=== PATIENT | male | born 1940 | race Caucasian/White ===

== ENCOUNTER 2021-02-28 17:51 | Observation (INO) ==
[2021-02-28] MEDS ORDERED: Acetaminophen 325 MG TABLET PO PRN (20:36)
[2021-02-28] MEDS ORDERED: Melatonin 3 MG TABLET PO PRN (20:36)
[2021-02-28] MEDS ORDERED: Naloxone 0.4 MG/ML INJ IVP PRN (20:36)
[2021-02-28] MEDS ORDERED: Ondansetron 4 MG/2 ML VIAL IVP PRN (20:36)
[2021-02-28] MEDS ORDERED: *HR* Heparin 5,000 UNIT/ML VIAL IVP ONE (22:55)
[2021-02-28] MEDS ORDERED: *HR* Heparin 5,000 UNIT/ML VIAL IVP PRN ×2 (22:55)
[2021-02-28] MEDS ORDERED: Nitroglycerin 0.4 MG TAB.SUBL SL PRN (22:55)
[2021-02-28] MEDS ORDERED: Heparin 25,000UNIT/250ML 1/2NS 25,000 UNIT/250 ML IV.SOLN IVC SCH (23:00)
[2021-03-01] MEDS ORDERED: Perflutren Lipid Microsphere 1.3 ML in 0.9 % Sodium Chloride 8.7 ML IVP PRN (00:24)
[2021-03-01] MEDS ORDERED: Loratadine 10 MG TABLET PO SCH (00:30)
[2021-03-01] MEDS: Morphine Sulfate 2 MG/ML SYRINGE IVP PRN ×2 (00:46→05:51)
[2021-03-01] MEDS: Gabapentin 300 MG CAPSULE PO SCH ×2 (00:46→08:36)
[2021-03-01] MEDS: Isosorbide MONOnitrate (24 HR) 60 MG TAB.ER.24H PO SCH ×2 (00:47→08:36)
[2021-03-01 06:01] LABS: Basophils % 0.3 %; Eosinophils % 0.1 %; Hematocrit 33.9 % (37.5-50.1); Immature Granulocytes % 0.3 % (0-4); Lymphocytes # 2.1 K/mcL (0.6-4.6); Lymphocytes % 13.7 %; Mean Corpuscular HGB Conc 32.4 g/dL (31.6-35.5); Mean Corpuscular Hemoglobin 31.2 pg (28.0-33.3); Mean Platelet Volume 12.2 fL (9.4-12.4); Monocytes # 1.8 K/mcL (0.0-1.3); Monocytes % 11.9 %; Neutrophils # 11.1 K/mcL (1.6-8.9); Platelet Count 255 K/mcL (140-400); Red Blood Count 3.53 M/mcL (4.19-5.50); Red Cell Distribution Width 14.4 % (11.5-14.5); Segmented Neutrophils % 73.7 %
[2021-03-01 06:09] LABS: INR 1.4
[2021-03-01 06:28] LABS: Albumin 3.4 g/dL (3.5-5.7); Albumin/Globulin Ratio 0.9 (1.1-2.2); Bilirubin,Total 0.7 mg/dL (0.3-1.0); Globulin 3.6 g/dL (2.4-3.5); Magnesium 2.4 mg/dL (1.6-2.6); Phosphorous 3.4 mg/dL (2.7-4.5); Potassium 4.4 mEq/L (3.5-5.1); Troponin I 0.05 ng/mL (< 0.04)
[2021-03-01] MEDS ORDERED: Cholecalciferol (D-3) 1,000 UNIT (25MCG) TABLET PO SCH (09:00)
[2021-03-01] MEDS ORDERED: Aspirin Enteric Coated 81 MG Tablet PO SCH (09:00)
[2021-03-01] MEDS ORDERED: *HR* OxyCODONE Immed Rel 5 MG TABLET PO ONE (13:23)
[2021-03-01 15:16] LABS: Hematocrit 30.9 % (37.5-50.1); Hemoglobin 9.9 g/dL (12.9-16.9); Mean Corpuscular Hemoglobin 30.9 pg (28.0-33.3); Mean Corpuscular Volume 96.6 fL (83.0-100.0); Platelet Count 221 K/mcL (140-400); Red Cell Distribution Width 14.6 % (11.5-14.5); White Blood Count 16.1 K/mcL (4.3-11.1)
[2021-03-01] MEDS ORDERED: *HR* HYDROcodone/Acet 5/325 mg TABLET PO PRN (19:10)
[2021-03-01 20:03] VITALS: BP 120/60
[2021-03-01 20:13] LABS: VBG Ionized Calcium 1.06 mmol/L (1.15-1.35)
[2021-03-01 20:17] LABS: Heparin anti-factor XA UFH 0.36 IU/mL (0.30-0.70); INR 1.4; Prothrombin Time 15.8 Seconds (9.4-12.1)
[2021-03-01 20:19] LABS: Activated Partial Thrombo Time 53.6 Seconds (26.0-36.0)
[2021-03-01 20:29] LABS: Albumin 3.3 g/dL (3.5-5.7); Albumin/Globulin Ratio 0.9 (1.1-2.2); Bilirubin,Total 0.5 mg/dL (0.3-1.0); Calcium 8.6 mg/dL (8.6-10.3); Globulin 3.5 g/dL (2.4-3.5); Magnesium 2.3 mg/dL (1.6-2.6); Phosphorous 3.1 mg/dL (2.7-4.5); Potassium 4.4 mEq/L (3.5-5.1); Total Protein 6.8 g/dL (6.4-8.9)
== END 2021-03-01 20:36 | disposition short-term general hospital (02) ==
LOC: 3BNU → SUATTDRO 19:40 → ICNU 03-01 19:15
PROVIDERS: ADMIT Internal Medicine; ATTEND Registered Nurse

== ENCOUNTER 2022-03-04 16:54 | Inpatient (IN) ==
[2022-03-04 17:40] LABS: Basophils # 0.1 K/mcL (0.0-0.2); Basophils % 0.6 %; Eosinophils # 0.7 K/mcL (0.0-0.6); Eosinophils % 6.4 %; Hematocrit 29.1 % (37.5-50.1); Hemoglobin 9.4 g/dL (12.9-16.9); Immature Granulocytes % 0.3 % (0-4); Lymphocytes # 2.3 K/mcL (0.6-4.6); Lymphocytes % 21.5 %; Mean Corpuscular HGB Conc 32.3 g/dL (31.6-35.5); Mean Corpuscular Hemoglobin 31.1 pg (28.0-33.3); Mean Corpuscular Volume 96.4 fL (83.0-100.0); Mean Platelet Volume 12.3 fL (9.4-12.4); Monocytes # 0.7 K/mcL (0.0-1.3); Monocytes % 6.9 %; Neutrophils # 6.9 K/mcL (1.6-8.9); Platelet Count 269 K/mcL (140-400); Red Blood Count 3.02 M/mcL (4.19-5.50); Red Cell Distribution Width 15.7 % (11.5-14.5); Segmented Neutrophils % 64.3 %; White Blood Count 10.8 K/mcL (4.3-11.1)
[2022-03-04 17:49] LABS: Bilirubin,Urine Negative (Negative); Blood,Urine Small (Negative); Clarity,Urine Clear (Clear); Color,Urine Colorless (Yellow); Glucose,Urine (UA) 70 mg/dL (Normal); Ketones,Urine Negative (Negative); Leukocyte Esterase,Urine Negative (Negative); Mucus,Urine Few per lpf (None-Few); Nitrite,Urine Negative (Negative); PH,Urine 6.5 pH Units (5.0-8.0); Protein,Urine >=300 mg/dL (Neg-Trace); RBC,Urine 0-3 per hpf (0-3); Specific Gravity,Urine 1.008 (1.010-1.025); Urobilinogen,Urine Normal (Normal); WBC,Urine 0-3 per hpf (0-3)
[2022-03-04 18:04] LABS: Albumin 3.6 g/dL (3.5-5.7); Albumin/Globulin Ratio 0.9 (1.1-2.2); Bilirubin,Total 0.3 mg/dL (0.3-1.0); Calcium 8.8 mg/dL (8.6-10.3); Magnesium 2.5 mg/dL (1.6-2.6); Potassium 4.7 mEq/L (3.5-5.1); Total Protein 7.6 g/dL (6.4-8.9); Troponin I 0.04 ng/mL (< 0.04)
[2022-03-04 18:36] LABS: Adenovirus Not Detected (Not Detect); Bordetella Pertussis Not Detected (Not Detect); Chlamydophila pneumoniae Not Detected (Not Detect); Coronavirus 229E Not Detected (Not Detect); Coronavirus HKU1 Not Detected (Not Detect); Coronavirus NL63 Not Detected (Not Detect); Coronavirus OC43 Not Detected (Not Detect); Human Metapneumovirus Not Detected (Not Detect); Human Rhinovirus/Enterovirus Not Detected (Not Detect); Influenza A Subtype 2009 H1 Not Detected (Not Detect); Influenza B Not Detected (Not Detect); Mycoplasma pneumoniae Not Detected (Not Detect); Parainfluenza Virus 1 Not Detected (Not Detect); Parainfluenza Virus 2 Not Detected (Not Detect); Parainfluenza Virus 3 Not Detected (Not Detect); Parainfluenza Virus 4 Not Detected (Not Detect); Respiratory Syncytial Virus Not Detected (Not Detect); SARS-CoV-2 Not Detected (Not Detect)
[2022-03-04] MEDS ORDERED: Furosemide 40 MG/4 ML VIAL IVP ONE (19:47)
[2022-03-04] MEDS ORDERED: tiZANidine 4 MG TABLET PO PRN (21:34)
[2022-03-04] MEDS ORDERED: Acetaminophen 325 MG TABLET PO PRN (21:38)
[2022-03-04] MEDS ORDERED: Naloxone 0.4 MG/ML INJ IVP PRN (21:38)
[2022-03-04] MEDS ORDERED: Ondansetron 4 MG/2 ML VIAL IVP PRN (21:38)
[2022-03-04] MEDS ORDERED: Melatonin 3 MG TABLET PO PRN (21:38)
[2022-03-04] MEDS: Gabapentin 300 MG CAPSULE PO SCH (22:00)
[2022-03-04] MEDS ORDERED: Perflutren Lipid Microsphere 1.3 ML in 0.9 % Sodium Chloride 8.7 ML IVP PRN (22:21)
[2022-03-05] MEDS: *HR* Heparin 5,000 UNIT/ML VIAL SQ SCH ×4 (00:09→20:55)
[2022-03-05 00:10] LABS: Protein/Creatinine Ratio,Urine 7.05 mg/mg (0.00-0.20); Sodium, Urine 84.2 mEq/L
[2022-03-05 05:44] LABS: Hematocrit 26.7 % (37.5-50.1); Hemoglobin 8.7 g/dL (12.9-16.9); Mean Corpuscular Hemoglobin 31.8 pg (28.0-33.3); Mean Corpuscular Volume 97.4 fL (83.0-100.0); Red Blood Count 2.74 M/mcL (4.19-5.50); White Blood Count 11.1 K/mcL (4.3-11.1)
[2022-03-05 05:45] LABS: Mean Corpuscular HGB Conc 32.6 g/dL (31.6-35.5); Mean Platelet Volume 12.8 fL (9.4-12.4); Platelet Count 254 K/mcL (140-400); Red Cell Distribution Width 15.9 % (11.5-14.5)
[2022-03-05 06:01] LABS: INR 1.2; Prothrombin Time 12.9 Seconds (9.4-12.1)
[2022-03-05 06:03] LABS: Activated Partial Thrombo Time 32.1 Seconds (26.0-36.0)
[2022-03-05 06:10] LABS: Troponin I 0.05 ng/mL (< 0.04)
[2022-03-05 06:28] LABS: Calcium 8.6 mg/dL (8.6-10.3); Potassium 4.1 mEq/L (3.5-5.1)
[2022-03-05 07:13] LABS: Thyroid Stimulating Hormone 1.95 mcIU/mL (0.340-5.600)
[2022-03-05] MEDS ORDERED: Iron Sucrose Complex 400 MG in 0.9 % Sodium Chloride 250 ML IVPB ONE (07:22)
[2022-03-05 07:24] LABS: Folate 14.3 ng/mL (3.0-16.0)
[2022-03-05] MEDS: Renal Vitamin 1 CAP CAPSULE PO SCH (09:16)
[2022-03-05] MEDS: Aspirin Enteric Coated 81 MG Tablet PO SCH (09:17)
[2022-03-05] MEDS: Gabapentin 100 MG CAPSULE PO SCH (09:17)
[2022-03-05] MEDS: Cholecalciferol (D-3) 1,000 UNIT (25MCG) TABLET PO SCH (09:17)
[2022-03-05] MEDS: allopurinoL 100 MG TABLET PO SCH (09:17)
[2022-03-05] MEDS: amLODIPine 5 MG TABLET PO SCH (09:17)
[2022-03-05] MEDS: Isosorbide MONOnitrate (24 HR) 60 MG TAB.ER.24H PO SCH (09:17)
[2022-03-05] MEDS: Magnesium Oxide 400 MG TABLET PO SCH (09:17)
[2022-03-05] MEDS: Tolvaptan 15 MG TABLET PO SCH ×2 (09:55→17:33)
[2022-03-05] MEDS ORDERED: Tolvaptan 15 MG TABLET PO SCH (18:00)
[2022-03-05] MEDS: Gabapentin 300 MG CAPSULE PO SCH (20:55)
[2022-03-06] MEDS: *HR* Heparin 5,000 UNIT/ML VIAL SQ SCH ×3 (05:32→21:04)
[2022-03-06 05:46] LABS: Hematocrit 27.7 % (37.5-50.1); Mean Corpuscular HGB Conc 32.5 g/dL (31.6-35.5); Mean Corpuscular Hemoglobin 31.6 pg (28.0-33.3); Mean Corpuscular Volume 97.2 fL (83.0-100.0); Mean Platelet Volume 12.6 fL (9.4-12.4); Platelet Count 266 K/mcL (140-400); Red Blood Count 2.85 M/mcL (4.19-5.50); Red Cell Distribution Width 15.6 % (11.5-14.5)
[2022-03-06 06:06] LABS: Magnesium 2.4 mg/dL (1.6-2.6); Phosphorous 5.2 mg/dL (2.7-4.5); Potassium 4.6 mEq/L (3.5-5.1)
[2022-03-06] MEDS: amLODIPine 5 MG TABLET PO SCH (08:11)
[2022-03-06] MEDS: allopurinoL 100 MG TABLET PO SCH (08:11)
[2022-03-06] MEDS: Renal Vitamin 1 CAP CAPSULE PO SCH (08:11)
[2022-03-06] MEDS: Magnesium Oxide 400 MG TABLET PO SCH (08:11)
[2022-03-06] MEDS: Gabapentin 100 MG CAPSULE PO SCH (08:11)
[2022-03-06] MEDS: Isosorbide MONOnitrate (24 HR) 60 MG TAB.ER.24H PO SCH (08:11)
[2022-03-06] MEDS: Aspirin Enteric Coated 81 MG Tablet PO SCH (08:11)
[2022-03-06] MEDS: Cholecalciferol (D-3) 1,000 UNIT (25MCG) TABLET PO SCH (08:11)
[2022-03-06] MEDS: Tolvaptan 15 MG TABLET PO SCH ×2 (09:24→15:16)
[2022-03-06] MEDS ORDERED: Iron Sucrose Complex 400 MG in 0.9 % Sodium Chloride 250 ML IVPB ONE (14:42)
[2022-03-06] MEDS: Gabapentin 300 MG CAPSULE PO SCH (21:04)
[2022-03-07 03:29] LABS: Hematocrit 25.6 % (37.5-50.1); Hemoglobin 8.4 g/dL (12.9-16.9); Mean Corpuscular HGB Conc 32.8 g/dL (31.6-35.5); Mean Corpuscular Hemoglobin 31.2 pg (28.0-33.3); Mean Corpuscular Volume 95.2 fL (83.0-100.0); Mean Platelet Volume 12.7 fL (9.4-12.4); Platelet Count 259 K/mcL (140-400); Red Blood Count 2.69 M/mcL (4.19-5.50); Red Cell Distribution Width 15.5 % (11.5-14.5); White Blood Count 10.4 K/mcL (4.3-11.1)
[2022-03-07 03:46] LABS: Calcium 8.8 mg/dL (8.6-10.3); Magnesium 2.3 mg/dL (1.6-2.6); Phosphorous 5.2 mg/dL (2.7-4.5); Potassium 4.5 mEq/L (3.5-5.1)
[2022-03-07] MEDS: *HR* Heparin 5,000 UNIT/ML VIAL SQ SCH ×3 (06:03→21:12)
[2022-03-07] MEDS: Isosorbide MONOnitrate (24 HR) 60 MG TAB.ER.24H PO SCH (09:39)
[2022-03-07] MEDS: Aspirin Enteric Coated 81 MG Tablet PO SCH (09:39)
[2022-03-07] MEDS: allopurinoL 100 MG TABLET PO SCH (09:39)
[2022-03-07] MEDS: amLODIPine 5 MG TABLET PO SCH (09:39)
[2022-03-07] MEDS: Magnesium Oxide 400 MG TABLET PO SCH (09:39)
[2022-03-07] MEDS: Cholecalciferol (D-3) 1,000 UNIT (25MCG) TABLET PO SCH (09:39)
[2022-03-07] MEDS: Gabapentin 100 MG CAPSULE PO SCH (09:39)
[2022-03-07] MEDS: Renal Vitamin 1 CAP CAPSULE PO SCH (09:39)
[2022-03-07] MEDS: Tolvaptan 15 MG TABLET PO SCH ×2 (10:44→18:01)
[2022-03-07] MEDS: Gabapentin 300 MG CAPSULE PO SCH (21:11)
[2022-03-08 01:09] LABS: Hematocrit 29.4 % (37.5-50.1); Hemoglobin 9.5 g/dL (12.9-16.9); Mean Corpuscular HGB Conc 32.3 g/dL (31.6-35.5); Mean Corpuscular Hemoglobin 31.3 pg (28.0-33.3); Mean Corpuscular Volume 96.7 fL (83.0-100.0); Mean Platelet Volume 12.8 fL (9.4-12.4); Platelet Count 247 K/mcL (140-400); Red Blood Count 3.04 M/mcL (4.19-5.50); Red Cell Distribution Width 15.5 % (11.5-14.5); White Blood Count 11.3 K/mcL (4.3-11.1)
[2022-03-08 01:40] LABS: Calcium 9.1 mg/dL (8.6-10.3); Magnesium 2.4 mg/dL (1.6-2.6); Phosphorous 5.4 mg/dL (2.7-4.5); Potassium 5.1 mEq/L (3.5-5.1)
[2022-03-08] MEDS: *HR* Heparin 5,000 UNIT/ML VIAL SQ SCH ×3 (05:12→20:48)
[2022-03-08] MEDS: Magnesium Oxide 400 MG TABLET PO SCH (09:53)
[2022-03-08] MEDS: amLODIPine 5 MG TABLET PO SCH (09:54)
[2022-03-08] MEDS: Renal Vitamin 1 CAP CAPSULE PO SCH (09:54)
[2022-03-08] MEDS: Isosorbide MONOnitrate (24 HR) 60 MG TAB.ER.24H PO SCH (09:54)
[2022-03-08] MEDS: allopurinoL 100 MG TABLET PO SCH (09:54)
[2022-03-08] MEDS: Gabapentin 100 MG CAPSULE PO SCH (09:54)
[2022-03-08] MEDS: Tolvaptan 15 MG TABLET PO SCH (09:54)
[2022-03-08] MEDS: Cholecalciferol (D-3) 1,000 UNIT (25MCG) TABLET PO SCH (09:54)
[2022-03-08] MEDS: Aspirin Enteric Coated 81 MG Tablet PO SCH (09:54)
[2022-03-08] MEDS ORDERED: Lidocaine/EPI 1:100k 1% 50 ML VIAL ONE (13:00)
[2022-03-08] MEDS ORDERED: Heparin 1,000 UNITS/500 mL 500 ML ONE (13:00)
[2022-03-08] MEDS ORDERED: *HR* Heparin 5,000 UNIT/ML VIAL ONE (13:05)
[2022-03-08] MEDS ORDERED: *HR* FentaNYL (PF) 100 MCG/2 ML VIAL ONE (13:05)
[2022-03-08] MEDS ORDERED: 0.9 % Sodium Chloride 500 ML ONE (13:05)
[2022-03-08] MEDS ORDERED: ceFAZolin 2,000 MG in Water for inj. (sterile) 20 ML IVP ONE (13:18)
[2022-03-08] MEDS ORDERED: *HR* FentaNYL (PF) 100 MCG/2 ML VIAL IVP ONE (13:18)
[2022-03-08] MEDS ORDERED: 0.9 % Sodium Chloride 250 ML IVC PRN (15:24)
[2022-03-08] MEDS ORDERED: 0.9 % Sodium Chloride 1,000 ML PRIME SCH (15:30)
[2022-03-08 19:37] LABS: Hepatitis B Surface Antibody < 3.10 mIU/mL
[2022-03-08 19:48] LABS: Hepatitis B Surface Antigen Nonreactive (Nonreactive)
[2022-03-08] MEDS: Gabapentin 300 MG CAPSULE PO SCH (20:47)
[2022-03-08] MEDS: TOLVAPTAN 15 MG PO SCH (20:47)
[2022-03-09 02:03] LABS: Hematocrit 27.5 % (37.5-50.1); Mean Corpuscular HGB Conc 32.7 g/dL (31.6-35.5); Mean Corpuscular Hemoglobin 30.8 pg (28.0-33.3); Mean Corpuscular Volume 94.2 fL (83.0-100.0); Mean Platelet Volume 12.6 fL (9.4-12.4); Platelet Count 267 K/mcL (140-400); Red Blood Count 2.92 M/mcL (4.19-5.50); Red Cell Distribution Width 15.3 % (11.5-14.5); White Blood Count 8.9 K/mcL (4.3-11.1)
[2022-03-09 02:28] LABS: Albumin 3.1 g/dL (3.5-5.7); Albumin/Globulin Ratio 0.9 (1.1-2.2); Bilirubin,Total 0.3 mg/dL (0.3-1.0); Calcium 8.8 mg/dL (8.6-10.3); Globulin 3.5 g/dL (2.4-3.5); Magnesium 2.1 mg/dL (1.6-2.6); Potassium 4.1 mEq/L (3.5-5.1); Total Protein 6.6 g/dL (6.4-8.9)
[2022-03-09] MEDS: *HR* Heparin 5,000 UNIT/ML VIAL SQ SCH ×3 (05:54→20:18)
[2022-03-09] MEDS ORDERED: 0.9 % Sodium Chloride 250 ML IVC PRN (07:46)
[2022-03-09] MEDS ORDERED: *HR* Heparin 10,000 UNIT/10 ML VIAL IV PRN ×2 (07:46)
[2022-03-09] MEDS: Aspirin Enteric Coated 81 MG Tablet PO SCH (08:13)
[2022-03-09] MEDS: allopurinoL 100 MG TABLET PO SCH (08:13)
[2022-03-09] MEDS: Magnesium Oxide 400 MG TABLET PO SCH (08:13)
[2022-03-09] MEDS: Cholecalciferol (D-3) 1,000 UNIT (25MCG) TABLET PO SCH (08:13)
[2022-03-09] MEDS: Gabapentin 100 MG CAPSULE PO SCH (08:14)
[2022-03-09] MEDS: Renal Vitamin 1 CAP CAPSULE PO SCH (08:14)
[2022-03-09] MEDS: TOLVAPTAN 45 MG PO SCH (08:25)
[2022-03-09] MEDS: Isosorbide MONOnitrate (24 HR) 60 MG TAB.ER.24H PO SCH (09:03)
[2022-03-09] MEDS: amLODIPine 5 MG TABLET PO SCH (09:03)
[2022-03-09] MEDS: TOLVAPTAN 15 MG PO SCH (16:25)
[2022-03-09] MEDS ORDERED: Tolvaptan 15 MG TABLET PO SCH (18:00)
[2022-03-09] MEDS: Gabapentin 300 MG CAPSULE PO SCH (20:18)
[2022-03-10 05:59] LABS: Basophils # 0.1 K/mcL (0.0-0.2); Basophils % 0.6 %; Eosinophils # 0.5 K/mcL (0.0-0.6); Hematocrit 29.9 % (37.5-50.1); Hematocrit 31.2 % (37.5-50.1); Hemoglobin 10.1 g/dL (12.9-16.9); Immature Granulocytes % 0.3 % (0-4); Lymphocytes # 2.9 K/mcL (0.6-4.6); Lymphocytes % 26.5 %; Mean Corpuscular HGB Conc 32.4 g/dL (31.6-35.5); Mean Corpuscular HGB Conc 33.4 g/dL (31.6-35.5); Mean Corpuscular Hemoglobin 31.9 pg (28.0-33.3); Mean Corpuscular Volume 95.5 fL (83.0-100.0); Mean Corpuscular Volume 95.7 fL (83.0-100.0); Mean Platelet Volume 12.9 fL (9.4-12.4); Monocytes # 1.3 K/mcL (0.0-1.3); Monocytes % 12.4 %; Platelet Count 275 K/mcL (140-400); Platelet Count 283 K/mcL (140-400); Red Blood Count 3.13 M/mcL (4.19-5.50); Red Blood Count 3.26 M/mcL (4.19-5.50); Red Cell Distribution Width 15.3 % (11.5-14.5); Red Cell Distribution Width 15.5 % (11.5-14.5); Segmented Neutrophils % 55.2 %; White Blood Count 10.8 K/mcL (4.3-11.1)
[2022-03-10] MEDS: *HR* Heparin 5,000 UNIT/ML VIAL SQ SCH ×3 (05:59→21:00)
[2022-03-10 06:19] LABS: Albumin 3.2 g/dL (3.5-5.7); Albumin/Globulin Ratio 0.9 (1.1-2.2); Bilirubin,Total 0.4 mg/dL (0.3-1.0); Calcium 8.8 mg/dL (8.6-10.3); Globulin 3.7 g/dL (2.4-3.5); Potassium 3.9 mEq/L (3.5-5.1); Total Protein 6.9 g/dL (6.4-8.9)
[2022-03-10 06:20] LABS: Calcium 8.9 mg/dL (8.6-10.3); Potassium 3.7 mEq/L (3.5-5.1)
[2022-03-10] MEDS: Cholecalciferol (D-3) 1,000 UNIT (25MCG) TABLET PO SCH (07:45)
[2022-03-10] MEDS: Magnesium Oxide 400 MG TABLET PO SCH (07:45)
[2022-03-10] MEDS: Renal Vitamin 1 CAP CAPSULE PO SCH (07:45)
[2022-03-10] MEDS: allopurinoL 100 MG TABLET PO SCH (07:45)
[2022-03-10] MEDS: Gabapentin 100 MG CAPSULE PO SCH (07:45)
[2022-03-10] MEDS: Aspirin Enteric Coated 81 MG Tablet PO SCH (07:45)
[2022-03-10] MEDS: TOLVAPTAN 45 MG PO SCH (07:48)
[2022-03-10] MEDS ORDERED: 0.9 % Sodium Chloride 250 ML IVC PRN (08:30)
[2022-03-10] MEDS ORDERED: *HR* Heparin 10,000 UNIT/10 ML VIAL IV PRN ×2 (08:30)
[2022-03-10] MEDS ORDERED: Tolvaptan 15 MG TABLET PO SCH (09:00)
[2022-03-10 12:19] LABS: Hepatitis B Surface Antigen Nonreactive (Nonreactive)
[2022-03-10 12:48] LABS: Hepatitis B Core IgM Nonreactive (Nonreactive)
[2022-03-10] MEDS: Isosorbide MONOnitrate (24 HR) 60 MG TAB.ER.24H PO SCH (13:52)
[2022-03-10] MEDS: amLODIPine 5 MG TABLET PO SCH (13:52)
[2022-03-10] MEDS: Gabapentin 300 MG CAPSULE PO SCH (21:00)
[2022-03-11 05:03] LABS: Hematocrit 29.3 % (37.5-50.1); Hemoglobin 9.7 g/dL (12.9-16.9); Mean Corpuscular HGB Conc 33.1 g/dL (31.6-35.5); Mean Corpuscular Hemoglobin 31.6 pg (28.0-33.3); Mean Corpuscular Volume 95.4 fL (83.0-100.0); Mean Platelet Volume 12.4 fL (9.4-12.4); Platelet Count 269 K/mcL (140-400); Red Blood Count 3.07 M/mcL (4.19-5.50); Red Cell Distribution Width 15.6 % (11.5-14.5); White Blood Count 9.7 K/mcL (4.3-11.1)
[2022-03-11 05:27] LABS: Calcium 8.8 mg/dL (8.6-10.3); Potassium 3.8 mEq/L (3.5-5.1)
[2022-03-11] MEDS: *HR* Heparin 5,000 UNIT/ML VIAL SQ SCH ×3 (05:58→21:02)
[2022-03-11] MEDS: Aspirin Enteric Coated 81 MG Tablet PO SCH (08:05)
[2022-03-11] MEDS: Isosorbide MONOnitrate (24 HR) 60 MG TAB.ER.24H PO SCH (08:05)
[2022-03-11] MEDS: amLODIPine 5 MG TABLET PO SCH (08:05)
[2022-03-11] MEDS: Cholecalciferol (D-3) 1,000 UNIT (25MCG) TABLET PO SCH (08:05)
[2022-03-11] MEDS: Renal Vitamin 1 CAP CAPSULE PO SCH (08:05)
[2022-03-11] MEDS: allopurinoL 100 MG TABLET PO SCH (08:05)
[2022-03-11] MEDS: Magnesium Oxide 400 MG TABLET PO SCH (08:05)
[2022-03-11] MEDS: Gabapentin 300 MG CAPSULE PO SCH (19:38)
[2022-03-12] MEDS: *HR* Heparin 5,000 UNIT/ML VIAL SQ SCH ×2 (05:05→11:11)
[2022-03-12 06:07] LABS: Calcium 9.1 mg/dL (8.6-10.3); Potassium 4.7 mEq/L (3.5-5.1)
[2022-03-12 06:09] LABS: Hematocrit 29.2 % (37.5-50.1); Hemoglobin 9.4 g/dL (12.9-16.9); Mean Corpuscular HGB Conc 32.2 g/dL (31.6-35.5); Mean Corpuscular Hemoglobin 31.4 pg (28.0-33.3); Mean Corpuscular Volume 97.7 fL (83.0-100.0); Mean Platelet Volume 12.4 fL (9.4-12.4); Platelet Count 268 K/mcL (140-400); Red Blood Count 2.99 M/mcL (4.19-5.50); Red Cell Distribution Width 15.4 % (11.5-14.5); White Blood Count 9.6 K/mcL (4.3-11.1)
[2022-03-12 07:43] VITALS: PULSE 76; O2SAT 94
[2022-03-12] MEDS: Magnesium Oxide 400 MG TABLET PO SCH (07:45)
[2022-03-12] MEDS: Cholecalciferol (D-3) 1,000 UNIT (25MCG) TABLET PO SCH (07:45)
[2022-03-12] MEDS: allopurinoL 100 MG TABLET PO SCH (07:45)
[2022-03-12] MEDS: Renal Vitamin 1 CAP CAPSULE PO SCH (07:46)
[2022-03-12] MEDS: Aspirin Enteric Coated 81 MG Tablet PO SCH (07:46)
[2022-03-12] MEDS ORDERED: *HR* Heparin 10,000 UNIT/10 ML VIAL IV PRN (08:12)
[2022-03-12] MEDS ORDERED: 0.9 % Sodium Chloride 250 ML IVC PRN (08:12)
[2022-03-12 10:51] VITALS: TEMP 97.9
[2022-03-12 13:14] VITALS: BP 157/79
[2022-03-12] MEDS: amLODIPine 5 MG TABLET PO SCH (13:48)
[2022-03-12] MEDS: Isosorbide MONOnitrate (24 HR) 60 MG TAB.ER.24H PO SCH (13:48)
== END 2022-03-12 14:15 | disposition home or self-care (01) | DRG 280 ==
LOC: EMEROOARM 16:54 → 2ANU 16:54 → SUATTDRO 20:21 → 2ANU 21:12 → SUATTDRO 03-05 14:30
PROVIDERS: ADMIT Student in an Organized Health Care Education/Training Program; ATTEND Internal Medicine
PROC: IRPERMA (2022-03-08 13:00)